=== PATIENT | male | born 1975 | race Caucasian/White ===

== ENCOUNTER 2016-10-09 22:15 | Emergency (ER) | payer OTHER ==
[2016-10-09] MEDS ORDERED: Glucagon,Human Recombinant 1 MG Vial IM ONE ×2 (22:32→23:57)
[2016-10-09] MEDS ORDERED: Sodium Chloride 0.9% 1,000 ML IV SCH (22:45)
--- NOTE | 2016-10-09 22:53 | EDM.PDOC ---
ED HPI GENERAL MEDICAL PROBLEM - General Chief Complaint: Gastrointestinal Problem Stated Complaint: TROUBLE BREATHING Time Seen by Provider: 10/09/16 22:51 Source of Information: Reports: Patient History Limitations: Reports: No Limitations - History of Present Illness INITIAL COMMENTS - FREE TEXT/NARRATIVE: about 1 hour ago h was eating steak and potatoes and he now has something caught in his esophagus. He is not able to swallow his saliva. Onset: Today, Sudden Duration: Hour(s): Location: Reports: Neck, Chest, Other (He has pain where he feelslike the meat is stuck) Severity: Moderate Associated Symptoms: Reports: Chest Pain - Related Data Allergies Allergy/AdvReac Type Severity Reaction Status Date / Time No Known Allergies Allergy Verified 10/09/16 22:33 Home Meds: Home Meds NK [No Known Home Meds] 10/09/16 [History] Past Medical History Gastrointestinal History: Reports: Other (See Below) Other Gastrointestinal History: FB in throat in the past - Past Surgical History GI Surgical History: Reports: EGD Social & Family History - Tobacco Use Smoking Status *Q: Never Smoker - Caffeine Use Caffeine Use: Reports: Coffee ED ROS GENERAL - Review of Systems Review Of Systems: See Below Constitutional: Reports: No Symptoms HEENT: Reports: No Symptoms Respiratory: Reports: No Symptoms Cardiovascular: Reports: No Symptoms Endocrine: Reports: No Symptoms GI/Abdominal: Reports: Other (pt was eating steak tonight and felt like he got a piece stuck in the espophagus. ) : Reports: No Symptoms Musculoskeletal: Reports: No Symptoms ED EXAM, GI/ABD - Physical Exam Exam: See Below Text/Narrative:: pt feels he has something in his esophagus and is not able to swallow his saliva. Exam Limited By: No Limitations General Appearance: Alert, Mild Distress Eyes: Bilateral: Normal Appearance, EOMI Ears: Normal TMs Nose: Normal Inspection Throat/Mouth: Normal Inspection Head: Atraumatic Neck: Normal Inspection Respiratory/Chest: No Respiratory Distress Cardiovascular: Regular Rate, Rhythm GI/Abdominal: Soft, Non-Tender (Male) Exam: Deferred Rectal (Males) Exam: Deferred Back Exam: Normal Inspection Extremities: Normal Inspection Neurological: Alert, Oriented, Normal Cognition Psychiatric: Normal Affect Course - Vital Signs Last Recorded V/S: Last Vital Signs Temp 36.1 C 10/09/16 22:29 Pulse 54 L 10/10/16 00:38 Resp 16 10/10/16 00:38 BP 114/76 10/10/16 00:38 Pulse Ox 97 10/10/16 00:38 - Orders/Labs/Meds Orders: Active Orders 24 hr Category Date Time Status Sodium Chloride 0.9% [Normal Saline] 1,000 ml Med 10/09/16 22:45 Active IV ASDIRECTED Medication Orders Sodium Chloride (Normal Saline) 1,000 mls @ 999 mls/hr IV ASDIRECTED ANDREA Last Admin: 10/09/16 23:19 Dose: 999 mls/hr Meds: Medications Generic Name Dose Route Start Last Admin Trade Name Freq PRN Reason Stop Dose Admin Sodium Chloride 1,000 mls @ 999 mls/hr 10/09/16 22:45 10/09/16 23:19 Normal Saline IV 999 mls/hr ASDIRECTED ANDREA Administration Discontinued Medications Generic Name Dose Route Start Last Admin Trade Name Freq PRN Reason Stop Dose Admin Glucagon 1 mg 10/09/16 22:32 10/09/16 23:04 Glucagen IM 10/09/16 22:33 1 mg ONETIME ONE Administration Glucagon 1 mg 10/09/16 23:57 10/10/16 00:06 Glucagen IM 10/09/16 23:58 1 mg ONETIME ONE Administration - Re-Assessments/Exams Free Text/Narrative Re-Assessment/Exam: 10/10/16 00:43 ptm thought the glucogan had worked but he started to vomit again He was given the choice of getting a surgeon in to have it removed but he did not want to do that. He then v vomited and he swallowed with out difficulty Departure - Departure Time of Disposition: 00:20 Disposition: Home, Self-Care 01 Condition: fair Clinical Impression: Foreign body in esophagus - Discharge Information Referrals: PCP,None [Primary Care Provider] - Forms: ED Department Discharge Care Plan Goals: rtc if problems stick with liquids tonight. - My Orders Last 24 Hours: My Active Orders 10/09/16 22:45 Sodium Chloride 0.9% [Normal Saline] 1,000 ml IV ASDIRECTED - Assessment/Plan Last 24 Hours: My Active Orders 10/09/16 22:45 Sodium Chloride 0.9% [Normal Saline] 1,000 ml IV ASDIRECTED
[2016-10-10 00:39] VITALS: BP 114/76
[2016-10-10] MEDS ORDERED: LORazepam 2 MG/ML MDV IM ONE (00:40)
[2016-10-10] MEDS ORDERED: Ondansetron 4 MG/2 ML SDV IM ONE (00:42)
== END 2016-10-10 00:53 | disposition home or self-care (01) ==
LOC: JP.ED 22:15
DX: T18.108A Unspecified foreign body in esophagus causing other injury, initial encounter (principal)
CPT/HCPCS: 96360; 96372; 99284; J1610; J7040